=== PATIENT | female | born 2000 | race Caucasian/White ===

== ENCOUNTER 2020-09-01 10:53 | Emergency (ER) | payer OTHER, SELFPAY ==
[2020-09-01 11:00] VITALS: BP 116/79; PULSE 101; RESP 14; TEMP 37; O2SAT 100; BMI 18.6
--- NOTE | 2020-09-01 11:36 | DI.US.S_ITS ---
PROCEDURE: US PELVIC COMPLETE INDICATIONS: BLEEDING TECHNIQUE: Real-time scanning was performed of the pelvic organs, with image documentation. Additional endovaginal scanning was necessary due to incomplete visualization of the adnexal and endometrial structures by transabdominal scanning. COMPARISON: None. FINDINGS: Uterus: Uterus is normal in size at 8.2 x 3.5 x 3.0 cm. The endometrium measures 1.9 mm in combined thickness. Ovaries: Right ovary measures 2.9 x 1.2 x 1.9 cm. Left ovary measures 3.7 x 2.0 x 1.2 cm. Bilateral ovarian arterial and venous flow is identified. Other: No pathologic free abdominal or pelvic fluid. IMPRESSION: Unremarkable exam. Dictated by: Soumya Freeman M.D. on 09/01/2020 at 13:25 Approved by: Soumya Freeman M.D. on 09/01/2020 at 13:26
--- NOTE | 2020-09-01 11:39 | ED.FEMALEGU ---
HPI - Female Genitourinary General Chief complaint: Vaginal Bleeding Stated complaint: menstrual bleeding for 16 days Time Seen by Provider: 09/01/20 11:33 Source: patient Mode of arrival: Ambulatory Limitations: no limitations History of Present Illness HPI Narrative: Patient is a 19-year-old female who presents with 16 days of vaginal bleeding and suprapubic cramping and pain. She says she goes through 3 super tampons a day does not seem to be any worse today however it is consistent. She has taken Tylenol for her cramping but overall not getting any better. She cannot take ibuprofen because she has a sensitive stomach. She denies any nausea or vomiting. No fevers. She is currently being treated with antibiotics for a UTI and has been for the last 6 days. She feels like those symptoms have improved. She denies any dizziness lightheadedness or passing out. She is trying to get referrals. MD Complaint: UTI and vaginal bleeding Related Data Previous Rx's Medication Instructions Recorded prazosin 1 mg capsule 3 mg PO BEDTIME #90 cap 10/06/19 sertraline 25 mg tablet 25 mg PO DAILY #30 tab 12/23/19 medroxyprogesterone 20 mg PO DAILY #30 tab 09/01/20 Allergies Allergy/AdvReac Type Severity Reaction Status Date / Time No Known Drug Allergies Allergy Verified 09/01/20 11:09 Review of Systems Review of Systems Narrative: GENERAL: Denies chills, fatigue, malaise, fever, sweats, travel HEENT: Denies sinus pain, ear pain, sore throat, difficulty swallowing, neck pain RESPIRATORY: Denies dyspnea, cough, wheezing, hemoptysis, sputum. CARDIOVASCULAR: Denies chest pain, palpitations, orthopnea, edema GASTROINTESTINAL: Denies nausea, vomiting, abdominal pain, diarrhea, constipation, melena. : See HPI MUSCULOSKELETAL: Denies weakness, joint pain, or bony pain SKIN: No rash, no erythema, no pruritus NEUROLOGIC: Denies weakness, dizziness, headache, numbness, change in speech, confusion PSYCHIATRIC: No concerning psychosocial issues. 12 point review of systems is negative except for those stated above and HPI Patient History Medical History (Updated 09/01/20 @ 13:17 by Yu De Leon DO) Hemorrhoids alcohol intake frequency: holidays/special occasions only Substance Use Type: does not use Exam Initial Vital Signs Initial Vital Signs: Vital Signs Temperature 98.6 F 09/01/20 11:00 Pulse Rate 101 H 09/01/20 11:00 Respiratory Rate 14 09/01/20 11:00 Blood Pressure 116/79 09/01/20 11:00 Pulse Oximetry 100 09/01/20 11:00 GENERAL: Alert young 19-year-old female and in no acute distress. HEENT: Head atraumatic,EOMI, pupils reactive, face symmetric, moist mucous membranes CARDIOVASCULAR: Regular rate and rhythm without murmurs, rubs or gallops. RESPIRATORY: Breath sounds equal bilaterally, no wheezes rales or rhonchi. ABDOMEN: Soft, mild suprapubic pain no guarding or rebound : No CVA tenderness PELVIC: External genitalia is normal, blood clots, mild vaginal bleeding, no vaginal discharge, no odor, cervical os is closed, mild bilateral is adnexal tenderness EXTREMITIES: Normal range of motion, no clubbing or edema. Neurovascularly intact NEUROLOGICAL: Alert and oriented x4.Normal gait and speech. Cranial nerves II through XII grossly intact. SKIN: Warm, dry, no laceration, no petechiae, no rashes or lesions. Course Orders Ordered: ED Orders 09/01/20 11:36 US pelvic complete Stat 09/01/20 11:39 Complete Blood Count AUTO DIFF Stat Comprehensive Metabolic Panel Stat Vital Signs Vital signs: Vital Signs - 8 hr 09/01/20 11:00 09/01/20 13:31 Temperature 98.6 F Pulse Rate 101 H 77 Respiratory Rate 14 16 Blood Pressure 116/79 102/65 Pulse Oximetry 100 97 MDM - Female Genitourinary Lab Data Attestation: I reviewed the patient's lab results. Result diagrams: 09/01/20 11:39 09/01/20 11:39 Labs: Lab Results 09/01/20 09/01/20 Range/Units 11:39 11:39 WBC 7.6 (4.5-11.0) X10^3/uL RBC 4.72 (4.0-5.2) X10^6/uL Hgb 14.2 (12.0-16.0) g/dL Hct 41.7 (36-46) % MCV 88.3 (80-100) fL MCH 30.1 (26-34) PG MCHC 34.1 (30-36) % RDW 12.5 (11.6-14.8) % Plt Count 235 (150-400) X10^3/uL Neut % (Auto) 60.8 (50-75) % Lymph % (Auto) 24.7 L (25-40) % [place] % (Auto) 8.0 (3-14) % Eos % (Auto) 5.8 H (2-4) % Baso % (Auto) 0.7 (0-2) % Neut # (Auto) 4600 (0660-8093) /uL Lymph # (Auto) 1900 (7655-0283) /uL [place]ina # (Auto) 600 (0-900) /uL Eos # (Auto) 400 (0-450) /uL Baso # (Auto) 100 (0-100) /uL Sodium 137 (137-145) mmol/L Potassium 4.7 (3.4-5.1) mmol/L Chloride 104 (98-107) mmol/L Carbon Dioxide 27 (22-32) mmol/L BUN 10 (7-17) mg/dL Creatinine 0.65 (0.52-1.04) mg/dL Estimated GFR > 60.0 (>60) mL/min BUN/Creatinine Ratio 15.4 (6-22) Glucose 113 H (70-100) mg/dL Calcium 9.5 (8.4-10.2) mg/dL Total Bilirubin 0.3 (0.2-1.3) mg/dL AST 29 (14-36) IU/L ALT 16 (<35) IU/L Alkaline Phosphatase 38 (38-126) U/L Total Protein 7.6 (6.3-8.2) g/dL Albumin 4.4 (3.5-5.0) g/dL Globulin 3.2 (1.7-4.1) g/dL Albumin/Globulin Ratio 1.4 (1.0-2.8) Point of Care Testing Test Results Negative Urine Dip Bedside Urine Glucose Negative Bedside Urine Bilirubin - Negative Bedside Urine Ketone - Negative Urine Specific [place] 1.025 Bedside Urine Occult Blood +++ Bedside Urine pH 6.0 Bedside Urine Protein - Negative Bedside Urine Urobilinogen - Negative Bedside Urine Nitrite - Negative Bedside Urine Leukocytes - Negative Esterase Imaging Data US - 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 Additional endovaginal scanning was necessary due to incomplete visualization of the adnexal and endometrial structures by transabdominal scanning. COMPARISON: None. FINDINGS: Uterus: Uterus is normal in size at 8.2 x 3.5 x 3.0 cm. The endometrium measures 1.9 mm in combined thickness. Ovaries: Right ovary measures 2.9 x 1.2 x 1.9 cm. Left ovary measures 3.7 x 2.0 x 1.2 cm. Bilateral ovarian arterial and venous flow is identified. Other: No pathologic free abdominal or pelvic fluid. IMPRESSION: Unremarkable exam. Dictated by: Soumya Freeman M.D. on 09/01/2020 at 13:25 MDM Narrative Medical decision making narrative: Patient is hemodynamically stable blood work is overall reassuring she does have some vaginal bleeding on exam and minimal tenderness ultrasound is negative. Will start her on a small taper of Provera. At this time recommend pain control and follow-up. Discharge Plan Departure Patient Disposition: Home Clinical Impression: Vaginal bleeding Instructions: DI for Vaginal Bleeding Activity Restrictions/Additional Instructions: *You have been diagnosed with vaginal bleeding *What to do: At this time I recommend that you follow-up with [facility]. *Continue to take medications as directed Provera take 20 mg every 8 hours for 48 hours, then take 20 mg for 12 hours for 48 hours then take 2 tablets every day for 7 days *Follow up with your primary care provider in 2-3 days *Return to ER if you should have significant vaginal bleeding more than to super pads in 1 hour, dizziness lightheadedness, increased pain or any new, worsening or concerning symptoms Prescriptions: New medroxyprogesterone 10 mg tablet 20 mg PO DAILY Qty: 30 RF: 0 No Action prazosin 1 mg capsule 3 mg PO BEDTIME Qty: 90 RF: 1 sertraline 25 mg tablet 25 mg PO DAILY Qty: 30 RF: 3 Referrals: Myrtle Light ARNP [Primary Care Provider] -
[2020-09-01 11:50] LABS: Add Manual Diff / Slide Review NO; Basophils Absolute Auto 100 /uL (0-100); Basophils Percent Auto 0.7 % (0-2); Eosinophils Absolute Auto 400 /uL (0-450); Eosinophils Percent Auto 5.8 % (2-4); Hematocrit 41.7 % (36-46); Hemoglobin 14.2 g/dL (12.0-16.0); Lymphocytes Absolute Auto 1900 /uL (1100-4500); Lymphocytes Percent Auto 24.7 % (25-40); Mean Corpuscular HGB Conc 34.1 % (30-36); Mean Corpuscular Hemoglobin 30.1 PG (26-34); Mean Corpuscular Volume 88.3 fL (80-100); Monocytes Absolute Auto 600 /uL (0-900); Neutrophils Absolute Auto 4600 /uL (1500-7000); Neutrophils Percent Auto 60.8 % (50-75); Platelet Count 235 X10^3/uL (150-400); Red Blood Cell Count 4.72 X10^6/uL (4.0-5.2); Red Cell Distribution Width 12.5 % (11.6-14.8); White Blood Cell Count 7.6 X10^3/uL (4.5-11.0)
[2020-09-01 12:07] LABS: Alanine Aminotransferase 16 IU/L (<35); Albumin 4.4 g/dL (3.5-5.0); Albumin Globulin Ratio 1.4 (1.0-2.8); Alkaline Phosphatase 38 U/L (38-126); Aspartate Aminotransferase 29 IU/L (14-36); BUN Creatinine Ratio 15.4 (6-22); Bilirubin Total 0.3 mg/dL (0.2-1.3); Blood Urea Nitrogen 10 mg/dL (7-17); Calcium 9.5 mg/dL (8.4-10.2); Carbon Dioxide 27 mmol/L (22-32); Chloride 104 mmol/L (98-107); Estimated Glomerular Filt Rate > 60.0 mL/min (>60); Globulin 3.2 g/dL (1.7-4.1); Glucose 113 mg/dL (70-100); HEMOLYSIS 15 (0-50); Potassium 4.7 mmol/L (3.4-5.1); Sodium 137 mmol/L (137-145); Total Protein 7.6 g/dL (6.3-8.2)
[2020-09-01 13:31] VITALS: BP 102/65; PULSE 77; RESP 16; O2SAT 97
== END 2020-09-01 13:31 | disposition home or self-care (01) ==
PROVIDERS: Emergency Provider Emergency Medicine; PCP Nurse Practitioner Family
DX: N92.0 Excessive and frequent menstruation with regular cycle (principal)
CPT/HCPCS: 36415; 76830; 76856; 80053; 81003; 81025; 85025; 99284

== ENCOUNTER 2020-09-27 17:28 | Emergency (ER) | payer OTHER, SELFPAY ==
[2020-09-27] VITALS (7 sets, daily range): BP systolic 97–115; BP diastolic 58–82; PULSE 78–95; RESP 14–22; TEMP 36.4–37.2; O2SAT 99–100; BMI 18.6
[2020-09-27 18:02] LABS: Add Manual Diff / Slide Review NO; Basophils Absolute Auto 100 /uL (0-100); Basophils Percent Auto 0.7 % (0-2); Eosinophils Absolute Auto 400 /uL (0-450); Eosinophils Percent Auto 4.2 % (2-4); Hematocrit 38.9 % (36-46); Hemoglobin 13.2 g/dL (12.0-16.0); Lymphocytes Absolute Auto 2500 /uL (1100-4500); Lymphocytes Percent Auto 23.6 % (25-40); Mean Corpuscular HGB Conc 34.1 % (30-36); Mean Corpuscular Hemoglobin 29.8 PG (26-34); Mean Corpuscular Volume 87.4 fL (80-100); Monocytes Absolute Auto 900 /uL (0-900); Monocytes Percent Auto 8.8 % (3-14); Neutrophils Absolute Auto 6700 /uL (1500-7000); Neutrophils Percent Auto 62.7 % (50-75); Platelet Count 273 X10^3/uL (150-400); Red Blood Cell Count 4.45 X10^6/uL (4.0-5.2); Red Cell Distribution Width 12.3 % (11.6-14.8); White Blood Cell Count 10.7 X10^3/uL (4.5-11.0)
[2020-09-27 18:15] LABS: Alanine Aminotransferase 10 IU/L (<35); Albumin 4.3 g/dL (3.5-5.0); Albumin Globulin Ratio 1.3 (1.0-2.8); Alkaline Phosphatase 49 U/L (38-126); Aspartate Aminotransferase 22 IU/L (14-36); BUN Creatinine Ratio 17.5 (6-22); Bilirubin Total 0.2 mg/dL (0.2-1.3); Blood Urea Nitrogen 11 mg/dL (7-17); Calcium 9.1 mg/dL (8.4-10.2); Carbon Dioxide 25 mmol/L (22-32); Chloride 102 mmol/L (98-107); Estimated Glomerular Filt Rate > 60.0 mL/min (>60); Globulin 3.3 g/dL (1.7-4.1); Glucose 85 mg/dL (70-100); HEMOLYSIS < 15 (0-50); Potassium 3.9 mmol/L (3.4-5.1); Sodium 137 mmol/L (137-145); Total Protein 7.6 g/dL (6.3-8.2)
--- NOTE | 2020-09-27 19:45 | ED.GIBLEED ---
HPI - GI Bleed General Chief complaint: GI Bleed Stated complaint: Bloody stool X7 days Time Seen by Provider: 09/27/20 19:20 Source: patient Mode of arrival: Ambulatory Limitations: no limitations History of Present Illness HPI Narrative: the patient presents with complaints of GI bleed. She had her recently made a road trip to [place]. She developed diarrhea, she now has constipation. She has had blood in the diarrhea. She has no fever or chills. She has no current abdominal pain. She has no nausea vomiting. Her has not been ill. She know she does have a hemorrhoid. The blood is generally makes with the diarrhea, but she is also noted bright red blood on toilet paper. she has a history of constipation. She has no prior history of GI bleed. She is on no NSAIDs. She has not feel ill at this time. Related Data Previous Rx's Medication Instructions Recorded prazosin 1 mg capsule 3 mg PO BEDTIME #90 cap 10/06/19 sertraline 25 mg tablet 25 mg PO DAILY #30 tab 12/23/19 medroxyprogesterone 20 mg PO DAILY #30 tab 09/01/20 docusate sodium 50 mg PO DAILY #30 cap 09/27/20 hydrocortisone acetate [Anusol-HC] 25 mg [place] BID #12 ea 09/27/20 Allergies Allergy/AdvReac Type Severity Reaction Status Date / Time No Known Drug Allergies Allergy Verified 09/01/20 11:09 Review of Systems Constitutional Constitutional: Denies anorexia, Denies fever(s) and Denies headache(s) ENT Ears, Nose, Mouth, and Throat: Denies dizziness and Denies headache(s) Cardiovascular Cardiovascular: Denies chest pain and Denies rapid heart rate Respiratory Respiratory: Denies chest congestion and Denies cough Gastrointestinal Gastrointestinal: Reports as per HPI, Denies abdominal pain, Reports diarrhea, Denies nausea and Denies vomiting Genitourinary Genitourinary: Denies dysuria Genitourinary: Denies dysuria Musculoskeletal Musculoskeletal: Denies back pain Integumentary/Breasts Skin/Breast: Denies rash Neurologic Neurologic: Denies dizziness and Denies headache(s) Patient History Medical History (Updated 09/27/20 @ 20:11 by Jonathan Wen MD) Hemorrhoids Surgical History (Updated 09/27/20 @ 20:07 by Jonathan Wen MD) No significant past surgical history Social History Smoking Status: Never smoker Smoking Status: Never smoker alcohol intake frequency: holidays/special occasions only Substance Use Type: does not use Exam Initial Vital Signs Initial Vital Signs: Vital Signs Temperature 98.9 F 09/27/20 17:31 Pulse Rate 95 H 09/27/20 17:31 Respiratory Rate 22 09/27/20 17:31 Blood Pressure 115/82 09/27/20 17:31 Pulse Oximetry 100 09/27/20 17:31 Const General: cooperative and well developed Nutritional Appearance: well nourished HENMT Mouth: oral mucosae normal Resp Auscultation: clear to auscultation bilaterally Cardio Rate: regular rate Rhythm: regular rhythm Heart Sounds: no click, no gallops, no murmurs and no rubs Pulses: normal peripheral pulses GI Inspection: non-distended Palpation: soft, no hepatosplenomegaly, No guarding, No pulsatile mass and No tender Auscultation: normal bowel sounds Rectal Exam: heme positive stool and hemorrhoids ( external and internal hemorrhoid.) Back/Spine/Pelvis Back: No CVA tenderness Skin General: no rashes or lesions noted Extrem General: full ROM and no pedal edema Course Orders Ordered: ED Orders 09/27/20 17:54 Complete Blood Count AUTO DIFF Stat Comprehensive Metabolic Panel Stat Vital Signs Vital signs: Vital Signs - 8 hr 09/27/20 17:31 09/27/20 18:45 09/27/20 18:48 Temperature 98.9 F Pulse Rate 95 H 92 H 78 Respiratory Rate 22 14 Blood Pressure 115/82 99/66 Pulse Oximetry 100 99 100 MDM - GI Bleed Lab Data Result diagrams: 09/27/20 17:54 09/27/20 17:54 Labs: Lab Results 09/27/20 09/27/20 Range/Units 17:54 17:54 WBC 10.7 (4.5-11.0) X10^3/uL RBC 4.45 (4.0-5.2) X10^6/uL Hgb 13.2 (12.0-16.0) g/dL Hct 38.9 (36-46) % MCV 87.4 (80-100) fL MCH 29.8 (26-34) PG MCHC 34.1 (30-36) % RDW 12.3 (11.6-14.8) % Plt Count 273 (150-400) X10^3/uL Neut % (Auto) 62.7 (50-75) % Lymph % (Auto) 23.6 L (25-40) % [place] % (Auto) 8.8 (3-14) % Eos % (Auto) 4.2 H (2-4) % Baso % (Auto) 0.7 (0-2) % Neut # (Auto) 6700 (6256-7221) /uL Lymph # (Auto) 2500 (1863-3778) /uL [place] # (Auto) 900 (0-900) /uL Eos # (Auto) 400 (0-450) /uL Baso # (Auto) 100 (0-100) /uL Sodium 137 (137-145) mmol/L Potassium 3.9 (3.4-5.1) mmol/L Chloride 102 (98-107) mmol/L Carbon Dioxide 25 (22-32) mmol/L BUN 11 (7-17) mg/dL Creatinine 0.63 (0.52-1.04) mg/dL Estimated GFR > 60.0 (>60) mL/min BUN/Creatinine Ratio 17.5 (6-22) Glucose 85 (70-100) mg/dL Calcium 9.1 (8.4-10.2) mg/dL Total Bilirubin 0.2 (0.2-1.3) mg/dL AST 22 (14-36) IU/L ALT 10 (<35) IU/L Alkaline Phosphatase 49 (38-126) U/L Total Protein 7.6 (6.3-8.2) g/dL Albumin 4.3 (3.5-5.0) g/dL Globulin 3.3 (1.7-4.1) g/dL Albumin/Globulin Ratio 1.3 (1.0-2.8) Point of Care Testing Test Results Negative Urine Dip Bedside Urine Glucose Negative Bedside Urine Bilirubin - Negative Bedside Urine Ketone - Negative Urine Specific [place] 1.010 Bedside Urine Occult Blood - Negative Bedside Urine pH 6.0 Bedside Urine Protein - Negative Bedside Urine Urobilinogen - Negative Bedside Urine Nitrite - Negative Bedside Urine Leukocytes - Negative Esterase Discharge Plan Departure Patient Disposition: Home Clinical Impression: Acute GI bleeding Hemorrhoids Qualifiers: Hemorrhoid type: unspecified Qualified Code(s): K64.9 - Unspecified hemorrhoids Instructions: DI for Hemorrhoids Activity Restrictions/Additional Instructions: be sure you are drinking plenty of water at all times. Colace daily to help you manage constipation. Anusol HC suppositories 2 times daily for the hemorrhoids. I am going to order stool studies to check for food poisoning. Either submit the samples here or have your doctor order them at the [facility]. Return to the ER if he drug significant, increased bleeding. Follow-up with your doctor later this week as scheduled. Prescriptions: New hydrocortisone acetate [Anusol-HC] 25 mg suppository 25 mg [place] BID Qty: 12 RF: 0 docusate sodium 50 mg capsule 50 mg PO DAILY Qty: 30 RF: 0 No Action prazosin 1 mg capsule 3 mg PO BEDTIME Qty: 90 RF: 1 sertraline 25 mg tablet 25 mg PO DAILY Qty: 30 RF: 3 medroxyprogesterone 10 mg tablet 20 mg PO DAILY Qty: 30 RF: 0 Referrals: Myrtle Light ARNP [Primary Care Provider] -
== END 2020-09-27 20:35 | disposition home or self-care (01) ==
PROVIDERS: Emergency Medicine; Emergency Provider Emergency Medicine; PCP Nurse Practitioner Family
DX: K92.2 Gastrointestinal hemorrhage, unspecified (principal); K64.9 Unspecified hemorrhoids
CPT/HCPCS: 36415; 80053; 81003; 81025; 82272; 85025; 99282; 99283